=== PATIENT | male | born 1950 | race American Indian/Alaskan Native ===

== ENCOUNTER 2019-06-09 19:04 | Emergency (ER) | payer MEDICARE ==
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
[2019-06-09 21:14] LABS: Basophils % (Auto) 0.3 % (0.0-1.8); Hematocrit 46.9 % (35.5-45.6); Hemoglobin 15.6 gm/dl (11.8-15.2); Lymphocytes % (Auto) 19.3 % (13.4-35.0); Mean Corpuscular HGB Conc 33 % (32-34); Mean Corpuscular Volume 91 fl (84-94); Monocytes # (Auto) 0.5 K/mm3 (0.0-0.8); Monocytes % (Auto) 9.9 % (0.0-7.3); Platelet Count 217 K/mm3 (140-440); Red Blood Count 5.15 M/mm3 (3.65-5.03); Red Cell Distribution Width 14.4 % (13.2-15.2)
[2019-06-09 21:35] LABS: BUN/Creatinine Ratio 13; Blood Urea Nitrogen 13 mg/dL (9-20); Hemolysis Index 65
[2019-06-09 21:49] LABS: Bacteria,Urine 1+ /HPF (Negative); Bilirubin,Urine NEG (Negative); Blood,Urine NEG (Negative); Color,Urine Yellow (Yellow); Mucus,Urine FEW /HPF
[2019-06-09 21:50] LABS: Amphetamine Screen,Urine PRESUMPTIVE NEGATIVE; Benzodiazepines Screen,Urine PRESUMPTIVE NEGATIVE; Cannabinoid Screen,Urine PRESUMPTIVE NEGATIVE; Cocaine Screen,Urine PRESUMPTIVE NEGATIVE; Methadone Screen,Urine PRESUMPTIVE NEGATIVE; Opiate Screen,Urine PRESUMPTIVE NEGATIVE
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
[2019-06-10] MEDS: levETIRAcetam 500 MG TAB PO SCH ×2 (13:21→22:10)
[2019-06-10] MEDS: PHENYTOIN 100 MG CAPSULE.ER PO SCH ×2 (13:22→22:10)
[2019-06-10] MEDS ORDERED: amLODIPine 5 MG TAB PO ONE (21:58)
[2019-06-10] MEDS ORDERED: traZODone 50 MG TAB PO SCH (22:00)
[2019-06-11] MEDS ORDERED: cloNIDine 0.1 MG TAB PO ONE (06:51)
[2019-06-11] MEDS ORDERED: hydroCHLOROthiazide 25 MG TAB PO ONE (06:52)
[2019-06-11] MEDS ORDERED: ACETAMINOPHEN 325 MG TAB PO ONE (06:53)
[2019-06-11] MEDS ORDERED: cloNIDine 0.1 MG TAB ONE (06:56)
[2019-06-11] MEDS ORDERED: ACETAMINOPHEN 325 MG TAB ONE (06:56)
[2019-06-11 07:53] VITALS: BP 165/117
[2019-06-11] MEDS ORDERED: ARIPiprazole 10 MG TAB PO SCH (10:00)
[2019-06-11] MEDS: PHENYTOIN 100 MG CAPSULE.ER PO SCH (10:09)
[2019-06-11] MEDS: levETIRAcetam 500 MG TAB PO SCH (10:09)
--- NOTE | 2019-06-11 11:14 | Progress Note ---
<HARINI GRAHAMSeth - Last Filed: 06/11/19 11:40> Subjective - Reason for Consult Consult date: 06/11/19 Reason for consult: Mental Health Evaluation Requesting physician: CONCHITA HULL - Chief Complaint Chief complaint: Per ED Nurse Note: Patient ambulated to restroom and is now sitting in chair talking with staff. No distress noted. HPI Patient found in room by bedside, Patient is not oriented to person, time or place, still exhibiting delusional features, and homicidal intentions and SI. He still believes killing the individual that is stealing his social security check, and only him sees this person. He is eating well and no sleep disturbances reported by nurse. PAST PSYCHIATRIC HISTORY: Diagnoses: Schizophrenia and Depression Suicide attempts or Self-harm behavior: None reported Prior psychiatric hospitalizations: None reported Substance Abuse history: None reported Previous psychiatric medications tried: None reported Outpatient treatment: None reported PAST MEDICAL HISTORY: None reported Family Psychiatric History: None reported or documented SOCIAL HISTORY Marital Status: Single Living Arrangements: Lives with roommates Employment Status: On social security Access to guns/weapons: None reported Education: Not available History of Abuse: None reported Legal History: None reported ROS: Constitutional: Negative for weight loss ENT: Negative for stridor Respiratory: Negative for cough or hemoptysis All other systems reviewed and are negative MENTAL STATUS General Appearance and Behavior: age appropriate, good eye contact, cooperative with questioning and polite Cooperation: No irritation noted. Psychomotor Behavior: Within normal limits Mood: okay Affect and affective range: Congruent with stated mood Thought Process: Fluent/Logical and Goal-directed Thought Content: AVH, and delusional Speech: Normal volume and Regular rate and rhythm Intellectual Functioning: Average Suicidal Ideation: Passive SI Homicidal Ideation: Endorses HI Impulse Control: intact Insight and Judgment: Poor insight and poor judgment Memory: Normal Attention: Normal Orientation: alert and oriented Diagnosis - Psychiatric problem (1) Schizophrenia, paranoid type Current Visit: Yes Status: Acute (2) Medication nonadherence due to psychosocial problem Current Visit: Yes Status: Acute RECOMMENDATIONS MEDICATIONS: Cotinue current meds Risks, benefits and alternatives of medications discussed with the patient, questions answered and consent obtained from patient. PSYCHOTHERAPY: Supportive psychotherapy provided MEDICAL: Per primary team OPTOMETRIC TECHNICIAN: Yes DISPOSITION: Acute inpatient psychiatric hospitalization LEGAL STATUS: 1013 FOLLOW-UP: Will follow Thank you for the consult. Please contact with any questions and/or concerns. Suicidal and Homicidal Ideation Mental Status Exam - Vital signs Last Vital Signs Temp 97.7 F 06/11/19 07:52 Pulse 87 06/11/19 07:52 Resp 06/11/19 07:52 BP 165/117 06/11/19 07:52 Pulse Ox 98 06/11/19 07:52 Assessment and Plan - Patient Problems (1) Schizophrenia, paranoid type Current Visit: Yes Status: Acute (2) Medication nonadherence due to psychosocial problem Current Visit: Yes Status: Acute <MAISHA DURAND - Last Filed: 06/11/19 12:31> Mental Status Exam - Vital signs Last Vital Signs Temp 97.7 F 06/11/19 07:52 Pulse 87 06/11/19 07:52 Resp 20 06/11/19 07:52 BP 165/117 06/11/19 07:52 Pulse Ox 98 06/11/19 07:52
[2019-06-11] MEDS ORDERED: NITROFURANTOIN MONOHYD/M-CRYST 100 MG CAP PO SCH (14:00)
== END 2019-06-11 17:28 ==
LOC: ED 19:04 → EEVIPCON 19:04 → ED 06-11 17:28
DX: F20.0 Paranoid schizophrenia (principal); R45.851 Suicidal ideations; R45.850 Homicidal ideations; Z86.73 Personal history of transient ischemic attack (TIA), and cerebral infarction without residual deficits
CPT/HCPCS: 36415; 80048; 80307; 80320; 81001; 85025; 87076; 87086; 87186; G0480

== ENCOUNTER 2019-11-30 14:49 | Emergency (ER) | payer MEDICARE ==
[2019-11-30 15:51] LABS: Basophils % (Auto) 0.4 % (0.0-1.8); Hematocrit 51.3 % (35.5-45.6); Hemoglobin 16.9 gm/dl (11.8-15.2); Lymphocytes # (Auto) 1.1 K/mm3 (1.2-5.4); Mean Corpuscular HGB Conc 33 % (32-34); Mean Corpuscular Volume 89 fl (84-94); Monocytes # (Auto) 0.5 K/mm3 (0.0-0.8); Monocytes % (Auto) 10.9 % (0.0-7.3); Platelet Count 224 K/mm3 (140-440); Red Blood Count 5.78 M/mm3 (3.65-5.03); Red Cell Distribution Width 14.8 % (13.2-15.2)
[2019-11-30 16:02] LABS: BUN/Creatinine Ratio 11; Blood Urea Nitrogen 11 mg/dL (9-20); Calcium 9.3 mg/dL (8.4-10.2); Hemolysis Index 60
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
[2019-11-30] MEDS ORDERED: diphenhydrAMINE 50 MG/ML VIAL ONE (22:19)
[2019-11-30] MEDS ORDERED: ZIPRASIDONE MESYLATE 20 MG VIAL IM ONE ×2 (22:20→23:11)
[2019-11-30] MEDS ORDERED: LORazepam 2 MG/ML VIAL ONE (22:20)
[2019-11-30] MEDS ORDERED: WATER FOR INJ Sterile (PF) 10 ML ONE (22:21)
[2019-11-30] MEDS ORDERED: LORazepam 2 MG/ML VIAL IM ONE (23:14)
[2019-11-30] MEDS ORDERED: diphenhydrAMINE 50 MG/ML VIAL IM ONE (23:14)
[2019-12-01 20:36] LABS: Bilirubin,Urine NEG (Negative); Blood,Urine SM (Negative); Color,Urine Yellow (Yellow); Protein,Urine <15 mg/dL mg/dL (Negative); Urobilinogen,Urine < 2.0 mg/dL (<2.0); WBC,Urine < 1.0 /HPF (0.0-6.0)
[2019-12-01 20:52] LABS: Amphetamine Screen,Urine PRESUMPTIVE NEGATIVE; Benzodiazepines Screen,Urine PRESUMPTIVE NEGATIVE; Cannabinoid Screen,Urine PRESUMPTIVE NEGATIVE; Cocaine Screen,Urine PRESUMPTIVE NEGATIVE; Methadone Screen,Urine PRESUMPTIVE NEGATIVE; Opiate Screen,Urine PRESUMPTIVE NEGATIVE
[2019-12-02] MEDS ORDERED: NON-FORMULARY EACH (Levetiracetam [Keppra Tab] 1,000 MG) PO SCH (10:00)
[2019-12-02] MEDS: PHENYTOIN 100 MG CAPSULE.ER PO SCH ×2 (10:04→21:36)
[2019-12-02] MEDS: levETIRAcetam 500 MG TAB PO SCH ×2 (10:04→21:38)
--- NOTE | 2019-12-02 12:31 | XRay Report ---
CHEST 1 VIEW 12/02/2019 12:05 PM INDICATION / CLINICAL INFORMATION: Rule out TB for psych admission. COMPARISON: None available. FINDINGS: SUPPORT DEVICES: None. HEART / MEDIASTINUM: No significant abnormality. LUNGS / PLEURA: No significant pulmonary or pleural abnormality. No pneumothorax. ADDITIONAL FINDINGS: Moderate degenerative arthrosis both shoulders, left greater than right IMPRESSION: 1. No acute findings. Signer Name: Bubba Lancaster MD Signed: 12/02/2019 12:26 PM Workstation Name: [id number]
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
[2019-12-03] MEDS: levETIRAcetam 500 MG TAB PO SCH ×2 (12:26→22:08)
[2019-12-03] MEDS: PHENYTOIN 100 MG CAPSULE.ER PO SCH ×2 (12:26→22:09)
[2019-12-04] MEDS: PHENYTOIN 100 MG CAPSULE.ER PO SCH ×2 (09:44→21:52)
[2019-12-04] MEDS: levETIRAcetam 500 MG TAB PO SCH ×2 (09:44→21:52)
[2019-12-05 08:36] VITALS: BP 145/102
[2019-12-05] MEDS: levETIRAcetam 500 MG TAB PO SCH (10:22)
[2019-12-05] MEDS: PHENYTOIN 100 MG CAPSULE.ER PO SCH (10:22)
== END 2019-12-05 19:40 | disposition home or self-care (01) ==
LOC: ED 14:49 → EEVIPCON 14:49 → ED 12-05 19:40
DX: S09.90XA Unspecified injury of head, initial encounter (principal); R41.82 Altered mental status, unspecified; I10 Essential (primary) hypertension; R56.9 Unspecified convulsions; F31.9 Bipolar disorder, unspecified; Z86.73 Personal history of transient ischemic attack (TIA), and cerebral infarction without residual deficits; Z98.890 Other specified postprocedural states; Z79.899 Other long term (current) drug therapy; Y04.2XXA Assault by strike against or bumped into by another person, initial encounter; Y93.89 Activity, other specified; Y92.129 Unspecified place in nursing home as the place of occurrence of the external cause; Y99.8 Other external cause status
CPT/HCPCS: 36415; 70450; 71045; 80048; 80307; 81001; 85025; 96372; 99285; J1200; J2060; J3486; U0003; 80320; G0480